=== PATIENT | male | born 1990 | race Caucasian/White ===

== ENCOUNTER → 2021-08-03 | Outpatient (CLI) | payer OTHER | END | disposition home or self-care (01) | LOC: LAB SHORT 12:30 → LAB 12:30 | DX: M77.8 Other enthesopathies, not elsewhere classified (principal) | CPT/HCPCS: 88305; 88311 ==

== ENCOUNTER → 2022-08-23 | Outpatient (CLI) | payer OTHER | END | disposition home or self-care (01) | LOC: LAB SHORT 08:57 → PLD 08:57 | DX: M67.472 Ganglion, left ankle and foot (principal); M79.672 Pain in left foot; M25.572 Pain in left ankle and joints of left foot; S96.911A Strain of unspecified muscle and tendon at ankle and foot level, right foot, initial encounter; R26.1 Paralytic gait; M25.879 Other specified joint disorders, unspecified ankle and foot; M77.52 Other enthesopathy of left foot and ankle | CPT/HCPCS: 88304 ==

== ENCOUNTER → 2022-11-15 | Outpatient (CLI) | payer OTHER | END | disposition home or self-care (01) | LOC: LAB 13:09 → LAB SHORT 13:09 | DX: Z30.8 Encounter for other contraceptive management (principal) ==